=== PATIENT | male | born 1985 | race Caucasian/White ===

== ENCOUNTER 2019-01-11 08:17 | Inpatient (IN) | payer SELFPAY ==
[~2019-01-11] VITALS: Ht 177.8 cm; Wt 74.0 kg
[2019-01-11] VITALS (12 sets, daily range): BP systolic 82–116; BP diastolic 36–80
[2019-01-11] MEDS ORDERED: NS(*) 0.9% 1000 ML BAG 1,000 ML IV ONE (08:18)
[2019-01-11] MEDS ORDERED: KETAMINE HCL 500 MG/5 ML VIAL IM ONE ×2 (08:20→09:07)
--- NOTE | 2019-01-11 08:35 | ER Report ---
History and Physical Time Seen By MD: 08:21 HPI/ROS Patient name: Manish Lua : 1985 CHIEF COMPLAINT: Combative patient HISTORY OF PRESENT ILLNESS: Patient was seen initially on arrival in the ambulance bay while decontamination of the patient was being performed. Very little history is known about the patient. Really do not have an ID on the patient. Apparently he [place] [facility] patient became combative and allegedly took a supple to try to straighten an officer. The patient was administered pepper spray and wrestled to the ground. He was then handcuffed and placed under arrest. Patient remained combative. Because of the pepper spray EMS was called to the scene. Patient remained combative throughout entire transport to the emergency department. Because the patient was combative and a threat to staff it was decided to give 200 mg of IM ketamine for sedation. We were able to successfully D Lenny the patient and bring him to the treatment room patient was placed in 4. leather restraints became somewhat more combative during this process and was admi nistered another 200 mg of IM ketamine. We have no medical history. I'm unable to obtain history from the patient as he is in chemically-induced sedation with ketamine. Awaiting further information from [facility]. REVIEW OF SYSTEMS: Unable to obtain review of systems Home Meds No Active Prescriptions or Reported Meds Past Medical/Surgical History Unknown Social History of Unknown Constitutional Vital Sign - Last 24 Hours 01/11/19 01/11/19 08:17 09:45 Pulse 106 84 Resp 18 16 B/P (MAP) 146/90 117/83 (94) Pulse Ox 96 80 O2 Delivery Room Air Room Air Intake and Output 01/11/19 01/11/19 01/12/19 15:00 23:00 07:00 Intake Total 1000 ml Balance 1000 ml Physical Exam General/Constitutional: Patient is sedated secondary to ketamine, but in no obvious respiratory distress. Head: Normocephalic and atraumatic. Eyes: Conjunctival Injected; Rotory nystagmus (suspect ketamine induced) Sclera are clear and anicteric. Ears:External canals are clear. Tympanic membranes are clear with normal landmarks and light reflex. Nares: No rhinorrhea or bleeding. Turbinates are pink and moist. Oropharyngeal: Mucous membranes are moist. There is no pharyngeal erythema or exudate. There are no palatal petechiae. Uvula is midline and symmetrical. Neck: Supple, no adenopathy. Cardiovascular: Heart is regular rate and rhythm without audible murmurs, rubs or gallops. Pulmonary: Lungs are clear to auscultation bilaterally. There are no wheezes, rales, or rhonchi. Chest rise is symmetrical Abdomen: Soft, nontender, no guarding or peritoneal signs. Extremities: No gross deformities, No peripheral cyanosis. Neuro: Chemically sedated; appears able to move all extremities; nonverbal Skin: Multilpe tattoos; superfical abrasion to anterior right thigh Medical Decision Making Data Points Result Diagram: 01/11/19 0819 01/11/19 0819 Laboratory Hematology Test 01/11/19 08:19 01/11/19 09:10 Red Blood Count 5.89 M/uL (4.00-5.60) Mean Corpuscular Volume 91.2 fL (80.0-96.0) Mean Corpuscular Hemoglobin 30.4 pg (26.0-33.0) Mean Corpuscular Hemoglobin Concent 33.4 g/dL (32.0-36.0) Red Cell Distribution Width 13.7 % (11.5-14.5) Mean Platelet Volume 9.3 fL (7.2-11.1) Neutrophils (%) (Auto) 45.2 % (39.4-72.5) Lymphocytes (%) (Auto) 40.9 % (17.6-49.6) Monocytes (%) (Auto) 10.7 % (4.1-12.4) Eosinophils (%) (Auto) 2.1 % (0.4-6.7) Basophils (%) (Auto) 1.1 % (0.3-1.4) Nucleated RBC Relative Count (auto) 0.2 /100WBC Neutrophils # (Auto) 5.7 K/uL (2.0-7.4) Lymphocytes # (Auto) 5.1 K/uL (1.3-3.6) Monocytes # (Auto) 1.3 K/uL (0.3-1.0) Eosinophils # (Auto) 0.3 K/uL (0.0-0.5) Basophils # (Auto) 0.1 K/uL (0.0-0.1) Nucleated RBC Absolute Count (auto) 0.02 K/uL Sodium Level 141 mmol/L (137-145) Potassium Level 4.3 mmol/L (3.5-5.0) Chloride Level 101 mmol/L (98-107) Carbon Dioxide Level 13 mmol/L (22-30) Blood Urea Nitrogen 13 mg/dl (9-21) Creatinine 1.50 mg/dl (0.66-1.25) Glomerular Filtration Rate Calc 55.0 Random Glucose 231 mg/dl (75-110) Calcium Level 9.4 mg/dl (8.4-10.2) Total Bilirubin 0.8 mg/dl (0.2-1.3) Aspartate Amino Transf (AST/SGOT) 48 U/L (0-35) Alanine Aminotransferase (ALT/SGPT) 31 U/L (0-56) Alkaline Phosphatase 48 U/L (0-126) Troponin I < 0.012 ng/ml Total Protein 7.6 g/dl (6.3-8.2) Albumin 5.2 g/dl (3.5-5.0) Serum Alcohol < 10 mg/dl Urine Color Yellow Urine Clarity Slightly-cloudy Urine pH 6.0 pH (4.8-9.5) Urine Specific [place] 1.015 Urine Protein 30 mg/dL (NEGATIVE) Urine Glucose (UA) Negative mg/dL (NEGATIVE) Urine Ketones Negative mg/dL (NEGATIVE) Urine Blood Negative (NEGATIVE) Urine Nitrite Negative (NEGATIVE) Urine Bilirubin Negative (NEGATIVE) Urine Urobilinogen 4.0 mg/dL (0.2-1.9) Urine Leukocyte Esterase Negative (NEGATIVE) Urine RBC None /HPF (0-2/HPF) Urine WBC None /HPF (0-5/HPF) Urine Squamous Epithelial Cells None /LPF (NONE-FEW) Urine Amorphous Crystals Few /HPF Urine Bacteria Negative /HPF (NONE-FEW) Urine Mucus Few /HPF (NONE-FEW) Urine Opiates Screen Negative Urine Barbiturates Screen Negative Ur Tricyclic Antidepressants Screen Negative Urine Phencyclidine Screen Negative Urine Amphetamines Screen Positive Urine Benzodiazepines Screen Negative Urine Cocaine Screen Negative Urine Cannabinoids Screen Negative Chemistry Test 01/11/19 08:19 01/11/19 09:10 White Blood Count 12.6 k/uL (4.5-11.0) Red Blood Count 5.89 M/uL (4.00-5.60) Hemoglobin 17.9 g/dL (14.0-18.0) Hematocrit 53.7 % (42.0-52.0) Mean Corpuscular Volume 91.2 fL (80.0-96.0) Mean Corpuscular Hemoglobin 30.4 pg (26.0-33.0) Mean Corpuscular Hemoglobin Concent 33.4 g/dL (32.0-36.0) Red Cell Distribution Width 13.7 % (11.5-14.5) Platelet Count 395 K/uL (150-450) Mean Platelet Volume 9.3 fL (7.2-11.1) Neutrophils (%) (Auto) 45.2 % (39.4-72.5) Lymphocytes (%) (Auto) 40.9 % (17.6-49.6) Monocytes (%) (Auto) 10.7 % (4.1-12.4) Eosinophils (%) (Auto) 2.1 % (0.4-6.7) Basophils (%) (Auto) 1.1 % (0.3-1.4) Nucleated RBC Relative Count (auto) 0.2 /100WBC Neutrophils # (Auto) 5.7 K/uL (2.0-7.4) Lymphocytes # (Auto) 5.1 K/uL (1.3-3.6) Monocytes # (Auto) 1.3 K/uL (0.3-1.0) Eosinophils # (Auto) 0.3 K/uL (0.0-0.5) Basophils # (Auto) 0.1 K/uL (0.0-0.1) Nucleated RBC Absolute Count (auto) 0.02 K/uL Glomerular Filtration Rate Calc 55.0 Calcium Level 9.4 mg/dl (8.4-10.2) Total Bilirubin 0.8 mg/dl (0.2-1.3) Aspartate Amino Transf (AST/SGOT) 48 U/L (0-35) Alanine Aminotransferase (ALT/SGPT) 31 U/L (0-56) Alkaline Phosphatase 48 U/L (0-126) Troponin I < 0.012 ng/ml Total Protein 7.6 g/dl (6.3-8.2) Albumin 5.2 g/dl (3.5-5.0) Serum Alcohol < 10 mg/dl Urine Color Yellow Urine Clarity Slightly-cloudy Urine pH 6.0 pH (4.8-9.5) Urine Specific [place] 1.015 Urine Protein 30 mg/dL (NEGATIVE) Urine Glucose (UA) Negative mg/dL (NEGATIVE) Urine Ketones Negative mg/dL (NEGATIVE) Urine Blood Negative (NEGATIVE) Urine Nitrite Negative (NEGATIVE) Urine Bilirubin Negative (NEGATIVE) Urine Urobilinogen 4.0 mg/dL (0.2-1.9) Urine Leukocyte Esterase Negative (NEGATIVE) Urine RBC None /HPF (0-2/HPF) Urine WBC None /HPF (0-5/HPF) Urine Squamous Epithelial Cells None /LPF (NONE-FEW) Urine Amorphous Crystals Few /HPF Urine Bacteria Negative /HPF (NONE-FEW) Urine Mucus Few /HPF (NONE-FEW) Urine Opiates Screen Negative Urine Barbiturates Screen Negative Ur Tricyclic Antidepressants Screen Negative Urine Phencyclidine Screen Negative Urine Amphetamines Screen Positive Urine Benzodiazepines Screen Negative Urine Cocaine Screen Negative Urine Cannabinoids Screen Negative Toxicology Test 01/11/19 08:19 01/11/19 09:10 Serum Alcohol < 10 mg/dl Urine Opiates Screen Negative Urine Barbiturates Screen Negative Ur Tricyclic Antidepressants Screen Negative Urine Phencyclidine Screen Negative Urine Amphetamines Screen Positive Urine Benzodiazepines Screen Negative Urine Cocaine Screen Negative Urine Cannabinoids Screen Negative Urinalysis Test 01/11/19 09:10 Urine Color Yellow Urine Clarity Slightly-cloudy Urine pH 6.0 pH (4.8-9.5) Urine Specific [place] 1.015 Urine Protein 30 mg/dL (NEGATIVE) Urine Glucose (UA) Negative mg/dL (NEGATIVE) Urine Ketones Negative mg/dL (NEGATIVE) Urine Blood Negative (NEGATIVE) Urine Nitrite Negative (NEGATIVE) Urine Bilirubin Negative (NEGATIVE) Urine Urobilinogen 4.0 mg/dL (0.2-1.9) Urine Leukocyte Esterase Negative (NEGATIVE) Urine RBC None /HPF (0-2/HPF) Urine WBC None /HPF (0-5/HPF) Urine Squamous Epithelial Cells None /LPF (NONE-FEW) Urine Amorphous Crystals Few /HPF Urine Bacteria Negative /HPF (NONE-FEW) Urine Mucus Few /HPF (NONE-FEW) EKG/Imaging EKG Interpretation EKG shows sinus tachycardia with bilateral atrial enlargement no significant ST segment or T-wave abnormalities noted. Monitor Interpretation: Sinus Tachycardia Imaging FACILITY: [facility] PATIENT NAME: Gigi Jalloh : 1985 MR: [id number] V: [id number] EXAM DATE: ORDERING PHYSICIAN: KAE MONROE TECHNOLOGIST: Location: [facility] - [place] Patient: Gigi Jalloh : 1985 Visit/Account:[id number] Date of Sevice: 01/11/2019 CT BRAIN WITH Indication: ams Comparison: None. Technique: Noncontrast head CT vertex to the skull base obtained. One of the following dose optimization techniques was utilized in the performance of this exam: automated exposure control; adjustment of the mA and/or kV according to the patient's size; or use of an iterative reconstruction technique. Specific details can be referenced in the facility's radiology CT exam operational policy. Findings: Brain: Quevedo-white matter differentiation and cortex are maintained. Ventricles and sulci:Ventricles and sulci are symmetric in size. There is no abnormal extra-axial fluid collection or mass. Paranasal sinuses:Visualized paranasal sinuses and mastoid air cells are clear. Calvarium:Bones of the skull and skull base are intact. Orbits and soft tissues: Right and left globes and soft tissues of the head are normal. Impression: Normal head CT. Report Dictated By: Skyler Stinson at 01/11/2019 10:06 AM Report E-Signed By: Skyler Stinson at 01/11/2019 10:10 AM [id number] ED Course/Re-evaluation Clinical Indication for ER IV: IV Access ED Course 01/11/2019 8:36:44 am patient combative history is unknown still waiting highly to push to arrive for further additional history. We'll keep in 4. restraints perform medical workup. 01/11/2019 10:27:34 am case reviewed with Dr. Katherine Oconnor. Drug screen was positive for methamphetamines. CT scan of the head was negative remaining blood work is essentially unremarkable. LFTs show slight elevation in transaminases but normal bilirubin. Creatinine 1.5. Troponin was negative. History physical exam ED course were discussed with Dr. Oconnor. Patient will be admitted to the ICU 1-1 per hepatic encephalopathy and suspected methamphetamine overdose. Doses of ketamine that may be useful for his emergency chemical sedation with ketamine 1-2 mg/kg IV or 2-4 mg of ketamine IM 01/11/2019 10:33:11 am get additional information from the arresting officers that the patient apparently does use anabolic steroids, methamphetamine and does smoke pot. Decision to Disposition Date: Jan 11, 2019 Decision to Disposition Time: 10:33 Depart Departure Latest Vital Signs Vital Signs Date Time Temp Pulse Resp B/P (MAP) Pulse Ox O2 Delivery O2 Flow Rate FiO2 01/11/19 09:45 84 16 117/83 (94) 80 Room Air Impression: Primary Impression: Hepatic encephalopathy Additional Impression: Methamphetamine abuse Condition: Improved Disposition: Admitted from ER (To ICU Dr Lily Oconnor) New Scripts No Active Prescriptions or Reported Meds Problem Qualifiers KAE MONROE MD Jan 11, 2019 08:35
[2019-01-11] MEDS ORDERED: OLANZapine 10 MG VIAL IM ONLY ONE (08:40)
[2019-01-11] MEDS ORDERED: WATER STERILE 10 ML VIAL IM ONLY ONE (08:40)
[2019-01-11 08:42] LABS: PLATELET COUNT, AUTOMATED 395 K/uL (150-450)
[2019-01-11] MEDS ORDERED: SODIUM POLYST SULF 15 GM/60 ML PR ONE (09:05)
--- NOTE | 2019-01-11 09:11 | EKG ---
[place] [facility] [place]IENT NAME: ERNESTINA HINKLE : [id number] MR: [id number] V: [id number] EXAM DATE: ORDERING PHYSICIAN: KAE MONROE TECHNOLOGIST: Test Reason : AMS Blood Pressure : / mmHG Vent. Rate : 105 BPM Atrial Rate : 105 BPM P-R Int : 176 ms QRS Dur : 090 ms QT Int : 360 ms P-R-T Axes : 086 105 065 degrees QTc Int : 475 ms Sinus tachycardia Biatrial enlargement Abnormal ECG No previous ECGs available Confirmed by DAXA JESUS ([id number]) on 01/11/2019 7:35:22 PM Referred By: Confirmed By:DAXA JESUS
[2019-01-11] MEDS ORDERED: KETAMINE HCL 500 MG/5 ML VIAL ONE (09:33)
--- NOTE | 2019-01-11 10:13 | RADIOLOGY IMAGING REPORT ---
FACILITY: [facility] PATIENT NAME: Gigi Jalloh : 1985 MR: [id number] V: [id number] EXAM DATE: ORDERING PHYSICIAN: KAE MONROE TECHNOLOGIST: [place] [facility] [place] : 1985 Visit/Account:[id number] Date of Sevice: 01/11/2019 CT BRAIN WITH Indication: ams Comparison: None. Technique: Noncontrast head CT vertex to the skull base obtained. One of the following dose optimizat ion techniques was utilized in the performance of this exam: automated exposure control; adjustment o f the mA and/or kV according to the patient's size; or use of an iterative reconstruction technique. Specific details can be referenced in the facility's radiology CT exam operational policy. Findings: Brain: Quevedo-white matter differentiation and cortex are maintained. Ventricles and sulci:Ventricles and sulci are symmetric in size. There is no abnormal extra-axial flu id collection or mass. Paranasal sinuses:Visualized paranasal sinuses and mastoid air cells are clear. Calvarium:Bones of the skull and skull base are intact. Orbits and soft tissues: Right and left globes and soft tissues of the head are normal. Impression: Normal head CT. Report Dictated By: Skyler Stinson at 01/11/2019 10:06 AM Report E-Signed By: Skyler Stinson at 01/11/2019 10:10 AM [id number]
[2019-01-11] MEDS ORDERED: DEXMEDETOMIDINE IN 0.9 % NACL 100 ML IV PRN (10:55)
[2019-01-11] MEDS ORDERED: NS(*) 0.9% 1000 ML BAG 1,000 ML IV PRN ×2 (11:37→11:40)
[2019-01-11] MEDS ORDERED: FLUSH 10 ML SYR IVP PRN (11:40)
--- NOTE | 2019-01-11 12:16 | History & Physical ---
History of Present Illness Chief Complaint The patient was brought in by [facility] after becoming combative during an investigation which started when a certified ski patroller stopped to investigate [place] broken [place] [address]. History of Present Illness The patient is unable to be interviewed due to being sedated. According to ER staff and police officers, the patient was initially detained in the back of the squad car. The officer believes that the patient had methamphetamine on him and ingested it prior to being detained. As he sat in the squad car, he became more and more agitated. He kicked open the back door of the car and escaped. He was then apprehended, but only after a scuffle. The patient ended up getting sprayed with pepper spray to subdue him. He was eventually brought to [facility] ER for evaluation. Per the police report, he had many bags of "steroids" in the back of his car as well as multiple awards from body building competitions. In the ER, the patient was very aggressive and violent. He was given 2 doses of IM ketamine and also IM Zyprexa. He was also placed in 4 point restraints. Lab evaluation revealed an ammonia level of 300. His toxicology screen was positive for methamphetamine. The patient was recommended for admission for further evaluation of his hyperammonemia as well as observation due to sedation given in ER. History Unable To Obtain Past Medical: Unable to Obtain/Update Other Social/Family Hx FH and SH unobtainable. Social Drug Use: Currently Social Drugs: Meth Review of Systems Other Unable to obtain. Exam Vital Signs Vital Signs Date Time Temp Pulse Resp B/P (MAP) Pulse Ox O2 Delivery O2 Flow Rate FiO2 01/11/19 10:53 68 12 100/74 (83) 94 Room Air General Appearance: Other (The patient is sedated and in 4 point leather restraints in ICU. He groans and moves occasionally.) Neuro: Other (Unable to assess well. Moves all 4 extremities. ) Neck: No Masses Cardiovascular: Regular Rate and Rhythm, No Edema, No JVD Respiratory: No Respiratory Distress, Clear to Auscultation GI: Abd Soft and Non-Tender (BS+. No distention.) Musculoskeletal: Other (Moves all 4 extremities.) Extremities: Warm, Perfused Integumentary: Other (Multiple tattoos throughout. Quarter sized superficial abrasion over L anterior parietal scalp. Several superficial abrasions noted over scalp and face, R>L. L knee with small superficial abrasion. R trevizo with very small abrasion. No bruising noted at the time of exam.) Psych: Other (Sedated. Unable to assess. ) Medical Decision Making Data Points Result Diagram: 01/11/19 0801/11/19818 Item Value Date Time Urine Opiates Screen Negative 01/11/19909 Urine Barbiturates Screen Negative 01/11/19909 Ur Tricyclic Antidepressants Screen Negative 01/11/19909 Urine Phencyclidine Screen Negative 01/11/19909 Urine Amphetamines Screen Positive 01/11/19909 Urine Benzodiazepines Screen Negative 01/11/19909 Urine Cocaine Screen Negative 01/11/19909 Urine Cannabinoids Screen Negative 01/11/19909 Serum Alcohol < 10 mg/dl 01/11/19 08 Sodium Level 141 mmol/L 01/11/19 08 Potassium Level 4.3 mmol/L 01/11/19818 Chloride Level 101 mmol/L 01/11/19818 Carbon Dioxide Level 13 mmol/L *L 01/11/19818 Blood Urea Nitrogen 13 mg/dl 01/11/19 08 Creatinine 1.50 mg/dl H 01/11/19818 Glomerular Filtration Rate Calc 55.0 01/11/19818 Random Glucose 231 mg/dl H 01/11/19 08 Calcium Level 9.4 mg/dl 01/11/19 08 Total Bilirubin 0.8 mg/dl 01/11/19818 Aspartate Amino Transf (AST/SGOT) 48 U/L H 01/11/19 08 Alanine Aminotransferase (ALT/SGPT) 31 U/L 01/11/19 08 Alkaline Phosphatase 48 U/L 01/11/19 0819 Ammonia 309 UMOL/L H 01/11/19 08 Troponin I < 0.012 ng/ml 01/11/19818 Total Protein 7.6 g/dl 01/11/19 08 Albumin 5.2 g/dl H 01/11/19 08 White Blood Count 12.6 k/uL H 01/11/19 08 Red Blood Count 5.89 M/uL H 01/11/19 08 Hemoglobin 17.9 g/dL 01/11/19 0819 Hematocrit 53.7 % H 01/11/19818 Mean Corpuscular Volume 91.2 fL 01/11/19818 Mean Corpuscular Hemoglobin 30.4 pg 01/11/19818 Mean Corpuscular Hemoglobin Concent 33.4 g/dL 01/11/19818 Red Cell Distribution Width 13.7 % 01/11/19818 Platelet Count 395 K/uL 01/11/19818 Mean Platelet Volume 9.3 fL 01/11/19818 Neutrophils (%) (Auto) 45.2 % 01/11/19818 Lymphocytes (%) (Auto) 40.9 % 01/11/19818 Monocytes (%) (Auto) 10.7 % 01/11/19818 Eosinophils (%) (Auto) 2.1 % 01/11/19818 Basophils (%) (Auto) 1.1 % 01/11/19818 Nucleated RBC Relative Count (auto) 0.2 /100WBC 01/11/19818 Neutrophils # (Auto) 5.7 K/uL 01/11/19818 Lymphocytes # (Auto) 5.1 K/uL H 01/11/19818 Monocytes # (Auto) 1.3 K/uL H 01/11/19818 Eosinophils # (Auto) 0.3 K/uL 01/11/19818 Basophils # (Auto) 0.1 K/uL 01/11/19818 Nucleated RBC Absolute Count (auto) 0.02 K/uL 01/11/19818 EKG / Imaging Imaging FACILITY: [facility] - [place] PATIENT NAME: Gigi Jalloh : 1985 MR: [id number] V: [id number] EXAM DATE: ORDERING PHYSICIAN: KAE MONROE TECHNOLOGIST: [place]: [facility] [place]: Gigi Jalloh : 1985 Visit/Account:[id number] Date of Sevice: 01/11/2019 CT BRAIN WITH Indication: ams Comparison: None. Technique: Noncontrast head CT vertex to the skull base obtained. One of the following dose optimization techniques was utilized in the performance of this exam: automated exposure control; adjustment of the mA and/or kV according to the patient's size; or use of an iterative reconstruction technique. Specific details can be referenced in the facility's radiology CT exam operational policy. Findings: Brain: Quevedo-white matter differentiation and cortex are maintained. Ventricles and sulci:Ventricles and sulci are symmetric in size. There is no abnormal extra-axial fluid collection or mass. Paranasal sinuses:Visualized paranasal sinuses and mastoid air cells are clear. Calvarium:Bones of the skull and skull base are intact. Orbits and soft tissues: Right and left globes and soft tissues of the head are normal. Impression: Normal head CT. Report Dictated By: Skyler Stinson at 01/11/2019 10:06 AM Report E-Signed By: Skyler Stinson at 01/11/2019 10:10 AM [id number] Pre-Admit Course Medical Record Review: No (No records available.) Assessment and Plan Problems: (1) Methamphetamine intoxication Status: Acute Assessment & Plan: The amount of methamphetamine ingested is unknown. Will place in ICU and continue sedation. IV fluids. Monitor on telemetry. Continue 4 point restraints for safety of patient and staff. (2) Hyperammonemia Status: Acute Assessment & Plan: Etiology unclear. Will repeat an ammonia level and if truly elevated, will place NG tube and give lactulose. Mild elevation of AST noted, but T. bili and rest of his LFTs are normal. No history can be obtained currently. Time Spent on Plan of Care: < 30 min Venous Thromboembolism Antithrombotics Is Pt On Any Antithrombotics?: Yes Exam Sepsis Risk: No Definite Risk DAXA KIM MD Jan 11, 2019 12:16
--- NOTE | 2019-01-11 14:01 | Hospitalist Depart ---
Discharge Summary Reason for Hosp/Final Diag: (1) Methamphetamine intoxication Status: Acute Hospital Course & Plan: The patient ingested methamphetamine just before 0700 per police report. The amount of methamphetamine ingested was unknown. He was placed in ICU and sedated while monitoring on telemetry. He did not become tachycardic and no arrhythmias were noted. He did not have any elevation of his blood pressure. He was initially kept in 4 point restraints for safety of patient and staff. At about 1300, the patients sedation was stopped. He was no longer combative. Restraints were removed. He was deemed stable to discharge into police custody. (2) Hyperammonemia Status: Acute Hospital Course & Plan: Repeat ammonia level was 19. The initial level was felt to be spurious. No further evaluation or treatment needed. Departure Weight (Pounds): 163 Weight (Ounces): 2.0 Result Diagram: 01/11/1981801/11/19818 Condition: Improved Discharge: Other Facility ([facility]irement) Time Spent: < 30 min Discharge Instructions Diet: Regular Activity: As Tolerated Venous Thromboembolism Antithrombotics Is Pt On Any Antithrombotics?: Yes DAXA KIM MD Jan 11, 2019 14:01
[2019-01-12] MEDS ORDERED: ENOXAPARIN 40 MG/0.4ML SYR SC SCH (09:00)
== END 2019-01-11 14:40 | DRG 897 ==
LOC: EDBD 08:19 → ER 08:19 → ICU 10:40
PROVIDERS: ADMIT Internal Medicine; ATTEND Internal Medicine
DX: F15.129 Other stimulant abuse with intoxication, unspecified (principal); E72.20 Disorder of urea cycle metabolism, unspecified; K72.90 Hepatic failure, unspecified without coma; R45.6 Violent behavior; S00.01XA Abrasion of scalp, initial encounter; S80.212A Abrasion, left knee, initial encounter; S80.811A Abrasion, right lower leg, initial encounter; Y35.811A Legal intervention involving manhandling, law enforcement official injured, initial encounter; Y92.411 Interstate highway as the place of occurrence of the external cause
CPT/HCPCS: 36415; 70460; 80305; 80320; 81001; 82040; 82140; 82247; 82310; 82374; 82435; 82565; 82947; 84075; 84132; 84155; 84295; 84443; 84450; 84460; 84484; 84520; 85025; 93005; 96372; 99285; A4216; C1758; J3490; J7030

== ENCOUNTER → 2019-01-11 | Outpatient (CLI) | payer SELFPAY | LOC: AMB 07:32 | PROVIDERS: ATTEND Nurse Practitioner | DX: R41.82 Altered mental status, unspecified (principal); R45.1 Restlessness and agitation; Z77.098 Contact with and (suspected) exposure to other hazardous, chiefly nonmedicinal, chemicals; Z65.3 Problems related to other legal circumstances | CPT/HCPCS: A0425; A0429 ==